=== PATIENT | male | born 1975 | race Caucasian/White ===

== ENCOUNTER 2020-07-20 15:07 | Outpatient (REF) | payer MEDICAID, SELFPAY ==
[2020-07-22 15:03] LABS: Chlamydia Result Negative (Negative); GC Result Negative (Negative)
== END 2020-07-20 15:27 ==
LOC: NCHCN 15:07
PROVIDERS: PCP Family Medicine; Visit Provider Family Medicine
DX: R30.0 Dysuria (principal)
CPT/HCPCS: 87491; 87591

== ENCOUNTER 2021-03-23 02:58 | Emergency (ER) | payer MEDICAID, SELFPAY ==
[2021-03-23] VITALS (45 sets, daily range): BP systolic 149–171; BP diastolic 77–101; PULSE 62–97; RESP 13–24; TEMP 36.2; O2SAT 93–100
--- NOTE | 2021-03-23 03:00 | DI.CT_ITS ---
Exam(s) CT THORAX ABD/PEL CTA EXAM: CT THORAX ABD/PEL CTA CLINICAL HISTORY: severe rlq pain, radiates to chest and shoulder TECHNIQUE: Imaging Protocol: Axial computed tomography images with coronal and sagittal reformatted images were created and reviewed CONTRAST MATERIAL: Intravenous: Omnipaque 350 Contrast volume:100 mL Oral: No COMPARISON: No exams were available for comparison FINDINGS: The examination is limited due to patient motion artifact. CHEST: Tracheobronchial tree: Patent where visualized. Pulmonary parenchyma: No consolidation or dominant measurable mass. Subpleural cysts are seen which m ay reflect paraseptal emphysema. Visualized thyroid gland: Unremarkable. Mediastinum and Lucy: No dominant adenopathy or fluid collection. Small hiatal hernia. Pleura: No effusion or pneumothorax. Heart: The heart is not dilated. No coronary artery calcifications are seen. No pericardial effusion. Aorta: Thoracic aorta non-dilated. No evidence of dissection. Lymph nodes: Within normal limits. Soft tissues: Unremarkable. Bones:Within normal limits for the patient's age. Pulmonary arteries: The central pulmonary arteries show no evidence of a pulmonary embolus. ABDOMEN: Liver: Normal density. No measurable mass. Portal, Superior Mesenteric, and Splenic Veins: Unremarkable. Gallbladder and Biliary Tract: No radiodense calculus or dilation. Pancreas: Normal density, no abnormal calcifications or inflammatory process. Spleen: Normal. Adrenals: No masses seen. Kidneys: Normal size, contour and axis. No radiodense stones or obstructive uropathy. No masses seen. Abdominal Aorta: Abdominal portion non-dilated. Minimal atherosclerosis. Bowel: No obstruction or bowel wall thickening. No evidence of appendicitis. Peritoneal Cavity: No ascites, collection or mesenteric inflammatory response. No free air. Lymph Nodes: Within normal limits. Bones: Within normal limits for the patient's age. There is L5 spondylolysis. No significant spondy lolisthesis. Soft Tissues: Small fat containing left inguinal hernia. Small fat containing right inguinal hernia. There does appear to be high riding right testicle. PELVIS: Bladder: Symmetric distention, no gross wall thickening. Reproductive Organs: Unremarkable as visualized. Lymph Nodes: Within normal limits. Bones: Within normal limits. IMPRESSION: 1. No acute abdominal or pelvic process. 2. No acute pulmonary process. RADIATION DOSE DELIVERED: 1,414.39mGy.cm Total DLP DATA REPOSITORY: All CT scans at this facility are submitted to the National Radiology Data Registry (NRDR) Dose Index Registry (DIR) with the [employer] (ACR). RADIATION OPTIMIZATION: All CT scans at this facility use at least one of these dose optimization te chniques: automated exposure control; mA and/or kV adjustment per patient size (includes targeted exa ms where dose is matched to clinical indication); or iterative reconstruction.
--- NOTE | 2021-03-23 03:00 | RT.EKG_ITS ---
APPROVED REPORT Exam: Resting ECG Reason for Exam: chest pain Patient Location: E HR:76 bpm ECG Measurements Heart Rate 76 AXIS WV 135 P 47 QRSd 98 QRS 82 QT 420 T 60 QTc 473 Conclusion Sinus rhythm...normal P axis, V-rate 60- 99 Physician: Rate 76, sinus rhythm, QT 420, QRS normal, no significant ST elevation or depression, no e vidence of STEMI.
--- NOTE | 2021-03-23 03:05 | ED.GENADUL_ITS ---
Discharge Plan Disposition Patient Disposition: HOME Condition: Good Discharge Details Clinical Impression: Abdominal pain, Pain in right testicle, Skin lesion Primary Care Provider: Krishna Lala ED Provider: Valeriy Awan Home Meds and New Rx's Prescriptions: No Action methadone 10 mg/mL Concentrate 110 mg PO DAILY RF: 0 Discharge Instructions Instructions: Abdominal Pain (ED) Additional Instructions: At this time your CT scan of your abdomen shows no significant abnormality. Your laboratory work-up has improved on her reassessment/redraw. At this time I do feel that a notable part of your testicular pain was likely secondary to the high riding component, which has since resolved. Please follow-up closely with the urologist for discussion of potential surgical management in the future. In regards to the lesion on your leg, please keep the area bandaged, apply triple antibiotic ointment daily. Do not pick or scratch at the area. If after 2 weeks of consistent management like this there is no change whatsoever, the area may need to be biopsied. Please follow-up closely with your primary care provider in regards to this. If you notice any worsening of your symptoms, or any new symptoms such as vomiting, diarrhea, fever, chills, shortness of breath, chest pain, numbness, weakness, or fainting , please return immediately to the emergency department for reevaluation. Please follow up with your primary care provider as soon as possible for reassessment and reevaluation. As always, it was a pleasure participating in your medical care today. Referrals: Boogie Chisholm MD [ [facility] STAFF PHYSICIAN] - Krishna Lala [Primary Care Provider] - Medical Decision Making This is a 45-year-old male no significant past medical history except for methadone use who presents today for right lower quadrant abdominal pain. Patient states that for the last day he has had mild achiness in his abdomen, he did use heroin recently and also did use cocaine this evening. Patient states he went to sleep, and woke up with sudden onset severe right lower quadrant abdominal pain which she describes as sharp and stabbing, says it radiates up into his right chest and right shoulder. He admits to vomiting and nausea. He denies any urinary complaints. He admits to generalized pain throughout his abdomen and his genital region as well as his chest. He denies any numbness or tingling or weakness in his extremities. He denies any family history or personal history of aneurysm, dissection, or sudden catastrophic in the family from chest or abdominal problems. He denies previous abdominal surgeries. No other complaints at this time. He denies any other modifying factors currently aside for the pain being worse with palpation and touch of the abdomen. Physical exam demonstrates evidence of notable tenderness in the right lower quadrant, genital exam shows no evidence of testicular torsion clinically. With the patient's notable significant cocaine use, as well as his pain which does radiate to the chest pain concern for concerning abnormalities like dissection, however appendicitis is higher on the differential. Urinary/kidney stone is also on the differential but less likely. We'll get a CT scan/CTA, treat the patient's pain, get an child and family therapist closely and reassess. 6:07 AM There is a notable delay in labs and imaging initially secondary to the challenging nature of the patient venous access. I did place an ultrasound- guided IV eventually for secure IV access. Laboratory work-up returned, patient has a white count of 13, lactate of 2.4, electrolytes are stable, transaminases and alk phos minimally elevated, troponin unremarkable, EKG stable. Lipase normal. Urinalysis negative aside for mild ketones, toxicology UDS demonstrates positive opiates methadone and cocaine. Patient initial assessment demonstrated generalized abdominal tenderness throughout primarily in the right lower quadrant, testicular exam was unremarkable aside for high riding testicle with only minimal tenderness. CT scan results have returned, no evidence of acute process per radiology. I did contact the radiologist and reviewed the images with them, they do feel that the appendix is within normal limits, please see no evidence of edema of the abdomen or intestines. They're unable to assess vascular flow at the testicles. Repeat exam after 3 mg of Dilaudid demonstrates improved pain, however the patient still does demonstrate generalized lower quadrant abdominal tenderness, repeat testicular exam continues to demonstrate high riding testicle, mild tenderness in this area. Symptoms don't clinically appear consistent with torsion. Uncertain as to what the exact etiology of the cause of his pain, white count and elevated lactate are. As the patient's pain is improved, and there is no evidence of acute life-threatening etiology in the abdomen I do feel that further investigation of the scrotum and testicles is reasonable at this time. Currently there is no credit interviewer available but there will be one available in about an hour and a half. We'll continue to monitor the patient here, get an ultrasound of the testicles, monitor closely and reassess. Of note I was contacted by the patient close friend Mallory, the patient did give verbal permission for her to be told the clinical scenario. She would like to be contacted after the ultrasound results are back. Her phone number is [phone]. 7:38 AM Ultrasound was performed, and during the time of 6 AM when I last evaluated the patient scrotum and again palpated his testicles, the right one which was still slightly high riding, until when he went to ultrasound the patient had a notable transition from the testicle being high riding, to having a normal location within the scrotum. After this transition the patient had complete resolution of pain. Ultrasound was performed and did demonstrate a small varicocele and spermatocele, but no evidence of testicular lesion, mass, or evidence of torsion whatsoever. On reassessment the patient has no testicular pain or tenderness an d has no abdominal pain or tenderness whatsoever. He feels much better and feels comfortable going home. In addition to this he did show me a lesion on his right page, which is been present for the last few weeks. Recommendations at this time are for triple antibiotic ointment placement, as well as continued bandaging for the next 1 to 2 weeks. If lesion is unchanged after this course of treatment, will recommend close follow-up with PCP for potential discussion of biopsy. Lesion at this point looks like a well-healing ulcer from a previous abscess which the patient clinically states was there before. Symptoms at this time do not appear consistent with squamous cell carcinoma or basal cell carcinoma clinically. We will also place a referral with urology for follow-up for discussion about potential surgical management for the high riding testicle if it recurs. Repeat exam continues to show no signs of an acute surgical abdomen whatsoever. Discussed red flags which return. I have extensively reviewed the treatment plan and discharge instructions with the patient. I have addressed all patient concerns at this time. The patient was made aware of what symptoms to monitor for that would warrant a return to the emergency department. Discussed the plan with the patient, they demonstrate verbal understanding and agreement with our assessment and plan at this time. The documentation in this chart was dictated using [employer] dictation software. Please excuse any dictation errors. EKG 3: 06 Rate 76, sinus rhythm, QT 420, QRS normal, no significant ST elevation or depression, no evidence of STEMI. FINDINGS: Limitations: Moderate respiratory motion artifact. Pulmonary arteries: Evaluation for emboli in the segmental pulmonary arteries is somewhat limited due to respiratory motion artifact. No pulmonary arterial filling defects identified. Aorta: Unremarkable. No aortic aneurysm. No aortic dissection. Lungs: Mild paraseptal emphysema at the lung apices. Lungs otherwise clear. Pleural spaces: Unremarkable. No pneumothorax. No pleural effusion. Heart: Unremarkable. No cardiomegaly. No pericardial effusion. Lymph nodes: Unremarkable. No enlarged lymph nodes. Bones/joints: Unremarkable. No acute fracture. Soft tissues: Unremarkable. IMPRESSION: No evidence of pulmonary embolism. FINDINGS: Limitations: Moderate motion artifact. Aorta: No aortic aneurysm. No aortic dissection. Celiac trunk and mesenteric arteries: No occlusion or significant stenosis. Renal arteries: No occlusion or significant stenosis. Right iliac arteries: No occlusion or significant stenosis. Left iliac arteries: No occlusion or significant stenosis. Liver: No mass. Gallbladder and bile ducts: Unremarkable. No calcified stones. No ductal dilation. Pancreas: Unremarkable. No mass. No ductal dilation. Spleen: 14.4 cm maximum dimension of the spleen. Adrenal glands: Unremarkable. No mass. Kidneys and ureters: Unremarkable. No solid mass. No hydronephrosis. Stomach and bowel: Unremarkable. No obstruction. No mucosal thickening. Appendix: A normal appendix is seen. Intraperitoneal space: Unremarkable. No free air. No significant fluid collection. Lymph nodes: Unremarkable. No enlarged lymph nodes. Urinary bladder: Unremarkable. No mass. Reproductive: High riding right testicle. Bones/joints: No acute or suspicious osseous abnormalities. Mild disc space height loss at L2/L3. Soft tissues: Unremarkable. IMPRESSION: 1. No acute process identified in the abdomen or pelvis. 2. Splenomegaly. Thank you for allowing us to participate in the care of your patient. Dictated and Authenticated by: Cammy Davila MD 03/23/2021 5:13 AM Eastern Time ([place] & [place]) HPI General Date/Time Provider Initiated Documentation: 03/23/21 03:01 . HPI Narrative: This is a 45-year-old male no significant past medical history except for methadone use who presents today for right lower quadrant abdominal pain. Patient states that for the last day he has had mild achiness in his abdomen, he did use heroin recently and also did use cocaine this evening. Patient states he went to sleep, and woke up with sudden onset severe right lower quadrant abdominal pain which she describes as sharp and stabbing, says it radiates up into his right chest and right shoulder. He admits to vomiting and nausea. He denies any urinary complaints. He admits to generalized pain throughout his abdomen and his genital region as well as his chest. He denies any numbness or tingling or weakness in his extremities. He denies any family history or personal history of aneurysm, dissection, or sudden catastrophic in the family from chest or abdominal problems. He denies previous abdominal surgeries. No other complaints at this time. He denies any other modifying factors currently aside for the pain being worse with palpation and touch of the abdomen. Related Data Home Medications Medication Instructions Recorded Confirmed methadone 110 mg PO DAILY 03/23/21 03/23/21 Allergies Allergy/AdvReac Type Severity Reaction Status Date / Time Penicillins Allergy unknown as Unverified 03/23/21 03:05 child General Stated Complaint: Abd Prob IRA: 2 Review of Systems All systems reviewed & are unremarkable except as noted in HPI and below PFSH Social History Smoking/Tobacco Use Status: Current every day Tobacco Type: cigarettes Smoking risk assessment performed?: Yes Alcohol Intake: never Drug use: Daily Substance use type: crack/cocaine, heroin and IV drugs Do you feel safe at home: Yes Do you feel safe in your relationship?: Yes Exam Narrative Exam Narrative: 1.Const: Well-nourished, Well-developed, appearing stated age 2.Eyes: PERRL, no conjunctival injection, and symmetrical lids. 3.ENT: Atraumatic external nose and ears. Moist MM. Neck: Symmetric, trachea m idline, No thyromegaly. 4.CVS: +S1/S2, No murmurs or gallops. Peripheral pulses 2+ and equal in all extremities. Brisk capillary refill in all extremities. 5.RESP: Unlabored respiratory effort. Clear to auscultation bilaterally. No wheezes rales or rhonchi 6.GI: Notable tenderness in the right lower quadrant, generalized tenderness throughout. Genital exam demonstrates no genital abnormalities, testicles are in normal lie, normal cremasteric reflex bilaterally, one testicle is certainly much more proximal than the other. No significant testicular tenderness. 7.MSK: Normocephalic/Atraumatic, Extremities w/o deformity or ttp No cyanosis or clubbing, Normal movement of all extremities, dorsalis pedis and posterior tibial pulse +2 bilaterally, no vascular abnormalities 8.Skin: Warm, Dry. No rashes or lesions. 9.Neuro: acid tender II-XII grossly intact. Sensation grossly intact, no focal neurologic deficits. 10.Psych: (AAO) x3. Appropriate mood and affect Course Vital Signs Vital signs: Vital Signs Temperature 36.2 C L 03/23/21 03:00 Pulse 72 03/23/21 03:00 Respiratory Rate 24 03/23/21 03:00 Blood Pressure 164/92 H 03/23/21 03:00 Pulse Oximetry 100 03/23/21 03:00 Temperature 36.2 C L 03/23/21 03:00 Pulse 72 03/23/21 03:00 Respiratory Rate 24 03/23/21 03:00 Blood Pressure 164/92 H 03/23/21 03:00 Blood Pressure Position Supine 03/23/21 03:00 Pulse Oximetry 100 03/23/21 03:00 Oxygen Delivery Method Room Air 03/23/21 03:00 Oxygen Flow Rate 0 03/23/21 03:00 Pain Level 10 03/23/21 03:00 Procedures Other Description: Candidate vein examined with linear array probe - confirmed collapsibility, lack of pulsatility, and proper anatomic location. Using aseptic technique, IV catheter inserted with flash of blood noted, flow of venous blood confirmed. Flushes easily and without pain. No hematoma or complications noted. IV secured. Patient tolerated well. Sign Out Sign Out Data: Sign Out Comment: Severe abdominal pain, pending ultrasound of scrotum. Last updated by Valeriy Awan DO at 03/23/21 06:52
--- NOTE | 2021-03-23 03:18 | NUR.NOTE ---
Two unsuccessful attempts at IV access in bilateral AC's. History of IV drug use. Kenna RN to attempt.Nursing Note:
--- NOTE | 2021-03-23 03:22 | NUR.NOTE ---
Two unsuccessful IV attempts in L AC by Henna Pierson Note:
--- NOTE | 2021-03-23 03:25 | NUR.NOTE ---
Unsuccessful IV attempt in left thumb. Patient reports that is his best vein. Plan for Dr. Awan to attempt IV start.Nursing Note:
--- NOTE | 2021-03-23 03:30 | NUR.NOTE ---
Dr. Awan at bedside for ultrasound guided IV placement.Nursing Note:
[2021-03-23] MEDS: Ondansetron 4 MG/2 ML VIAL IVP ×2 (03:41→05:00)
[2021-03-23] MEDS: Normal Saline 1,000 ML 1000 ML IV (03:50)
[2021-03-23] MEDS: HYDROmorphone 2 MG/ML VIAL 1 MG IVP ×3 (03:52→05:00)
[2021-03-23 03:59] LABS: Abs Immature Grans 0.05 10^3/uL (0.0-0.06); Absolute Eosinophil Count 0.07 10^3/uL (0.0-0.7); Absolute Monocyte Count 0.88 10^3/uL (0.1-0.8); Basophils % 0.8; Eosinophils % 0.5; HCT 46.1 % (40.0-50.0); HGB 15.4 g/dL (13.5-17.5); Immature Grans % 0.4; Lymphocytes % 24.4; MCH 27.6 pg (27.0-33.0); MCHC 33.4 % (32.0-36.0); MCV 82.8 fL (80-95); MPV 9.8 fL (8.0-11.0); Monocytes % 6.7; Neutrophils % 67.2; Nucleated RBC 0 %; Platelet Count 333 10^3/uL (130-400); RBC 5.57 10^6/uL (4.36-5.78); RDW 12.6 % (11.8-14.1)
--- NOTE | 2021-03-23 03:59 | NUR.NOTE ---
To DI per cart with sound technician.Nursing Note:
[2021-03-23 04:01] LABS: Lactate 2.4 mmol/L (0.9-1.7)
[2021-03-23 04:06] LABS: Source Nasal/Nares
[2021-03-23 04:18] LABS: ALT 71 U/L (16-63); AST 38 U/L (15-37); Albumin 4.4 g/dL (3.4-5.0); Alkaline Phosphatase 150 U/L (46-116); Anion Gap 10.1 mmol/L (3-11); BUN 17 mg/dL (7-18); Bilirubin, Total 0.6 mg/dL (0.2-1.0); CO2 28.9 mmol/L (21.0-32.0); CREATININE 1.2 mg/dL (0.70-1.30); Calcium 10.7 mg/dL (8.5-10.1); Chloride 99 mmol/L (98-107); Glucose 119 mg/dL (74-106); Potassium 3.4 mmol/L (3.5-5.1); Sodium 138 mmol/L (136-145); Total Protein 9.7 g/dL (6.4-8.2)
[2021-03-23] MEDS: Omnipaque 350 MG/ML 100 ML BTL IJ (04:18)
[2021-03-23 04:20] LABS: Lipase 66 U/L (73-393)
[2021-03-23 04:21] LABS: Troponin I < 0.05 ng/mL (<0.06)
[2021-03-23 05:00] LABS: Bilirubin Negative (Negative); Blood Negative (Negative); Clarity Sl Cloudy (Clear); Glucose Negative (Negative); Ketones 80 mg/dL (Negative); Leukocyte Esterase Negative (Negative); Nitrite Negative (Negative); Specific Gravity 1.015 (1.005-1.025); Urobilinogen 0.2 EU/dL (Up TO 0.2); pH >= 9.0 (5-8)
--- NOTE | 2021-03-23 05:06 | NUR.NOTE ---
Patient requests his dose of methadone, reports it has been a few days, unsure last appointment, reports he overslept.Nursing Note:
[2021-03-23 05:12] LABS: *AMPHETAMINES SCREEN URINE Negative (Negative); *BARBITURATES SCREEN URINE Negative (Negative); *BENZODIAZEPINES SCREEN URINE Negative (Negative); Cannabinoids THC Negative (Negative); Cocaine Screen,Urine Positive (Negative); METHADONE URINE SCREEN Positive (Negative); OPIATES URINE SCREEN Positive (Negative)
--- NOTE | 2021-03-23 05:13 | DI.VRAD_ITS ---
Addendum created by Cammy Davila MD on 03/23/2021 5:28:37 AM EDT: Findings were discussed with SEDA PAGAN at 03/23/2021 5:28 AM EDT. Initial report created on 03/23/2021 5:13:36 AM EDT: PROCEDURE INFORMATION: Exam: CTA Chest With Contrast Exam date and time: 03/23/2021 3:04 AM Age: 45 years old Clinical indication: Other: Severe rlq pain radiaes to chest and shoulder; Abdominal pain; Localized; Right lower quadrant (rlq) TECHNIQUE: Imaging protocol: Computed tomographic angiography of the chest with contrast. 3D rendering (Not supervised by radiologist): MIP and/or 3D reconstructed images were created by the technologist. Radiation optimization: All CT scans at this facility use at least one of these dose optimization techniques: automated exposure control; mA and/or kV adjustment per patient size (includes targeted exams where dose is matched to clinical indication); or iterative reconstruction. Contrast material: OMNI 350; Contrast volume: 100 ml; Contrast route: INTRAVENOUS (IV); COMPARISON: No relevant prior studies available. FINDINGS: Limitations: Moderate respiratory motion artifact. Pulmonary arteries: Evaluation for emboli in the segmental pulmonary arteries is somewhat limited due to respiratory motion artifact. No pulmonary arterial filling defects identified. Aorta: Unremarkable. No aortic aneurysm. No aortic dissection. Lungs: Mild paraseptal emphysema at the lung apices. Lungs otherwise clear. Pleural spaces: Unremarkable. No pneumothorax. No pleural effusion. Heart: Unremarkable. No cardiomegaly. No pericardial effusion. Lymph nodes: Unremarkable. No enlarged lymph nodes. Bones/joints: Unremarkable. No acute fracture. Soft tissues: Unremarkable. IMPRESSION: No evidence of pulmonary embolism. PROCEDURE INFORMATION: Exam: CTA Abdomen and Pelvis With Contrast Exam date and time: 03/23/2021 3:04 AM Age: 45 years old Clinical indication: Other: Severe rlq pain radiaes to chest and shoulder; Abdominal pain; Localized; Right lower quadrant (rlq) TECHNIQUE: Imaging protocol: Computed tomographic angiography of the abdomen and pelvis with contrast material. 3D rendering (Not supervised by radiologist): MIP and/or 3D reconstructed images were created by the technologist. Contrast material: OMNI 350; Contrast volume: 100 ml; Contrast route: INTRAVENOUS (IV); COMPARISON: No relevant prior studies available. FINDINGS: Limitations: Moderate motion artifact. Aorta: No aortic aneurysm. No aortic dissection. Celiac trunk and mesenteric arteries: No occlusion or significant stenosis. Renal arteries: No occlusion or significant stenosis. Right iliac arteries: No occlusion or significant stenosis. Left iliac arteries: No occlusion or significant stenosis. Liver: No mass. Gallbladder and bile ducts: Unremarkable. No calcified stones. No ductal dilation. Pancreas: Unremarkable. No mass. No ductal dilation. Spleen: 14.4 cm maximum dimension of the spleen. Adrenal glands: Unremarkable. No mass. Kidneys and ureters: Unremarkable. No solid mass. No hydronephrosis. Stomach and bowel: Unremarkable. No obstruction. No mucosal thickening. Appendix: A normal appendix is seen. Intraperitoneal space: Unremarkable. No free air. No significant fluid collection. Lymph nodes: Unremarkable. No enlarged lymph nodes. Urinary bladder: Unremarkable. No mass. Reproductive: High riding right testicle. Bones/joints: No acute or suspicious osseous abnormalities. Mild disc space height loss at L2/L3. Soft tissues: Unremarkable. IMPRESSION: 1. No acute process identified in the abdomen or pelvis. 2. Splenomegaly. Dictated and Authenticated by: Cammy Davila MD. Ordering:PARADISE Crooks MD
[2021-03-23 05:14] LABS: Tricyclic Antidepressants Negative (Negative)
--- NOTE | 2021-03-23 05:30 | DI.US_ITS ---
Exam(s) US SCROTUM EXAM: US SCROTUM CLINICAL HISTORY: eval testicles for torsion. TECHNIQUE: Scrotal ultrasound performed using grayscale, color-flow and spectral Doppler analysis. COMPARISON: No exams were available for comparison FINDINGS: Right testicle: 4.2 x 2.3 x 3.0 cm Echogenicity: Normal. Contour: Smooth. Mass: None seen. Microlithiasis: None. Hydrocele: None. Variocele: None. Hernia: No peristalsing bowel loop identified. Epididymis: Normal. Left testicle: 4.2 x 2.3 x 3.0 cm Echogenicity: Normal. Contour: Smooth. Mass: None seen. Microlithiasis: 3 echogenic foci are seen in the left testicle. These likely reflect small calcifica tions. Hydrocele: None. Variocele: Left varicocele is present. Hernia: No peristalsing bowel loop identified. Epididymis: Normal. DOPPLER: Color: Symmetric and uniform, no hyperemia. Duplex: Bilateral testicular arterial waveforms visualized. IMPRESSION: No evidence of testicular torsion or an inflammatory/infectious process. DATA REPOSITORY:
--- NOTE | 2021-03-23 06:07 | NUR.NOTE ---
Patient resting with eyes closed. Vital signs stable. Side rails up x2. Call light in reach.Nursing Note:
[2021-03-23 06:56] LABS: Lactate 1.1 mmol/L (0.6-1.4)
--- NOTE | 2021-03-23 07:03 | NUR.NOTE ---
Report to ELEANOR Nguyen for continued careNursing Note:
[2021-03-23 07:21] LABS: Troponin I < 0.05 ng/mL (<0.06)
--- NOTE | 2021-03-23 07:36 | NUR.NOTE ---
Nursing Note: Spoke with Matheus at [facility] and notified them that the patient did not receive his dose from us and that he would be coming to their facility to get it. Porsche Blackburn
--- NOTE | 2021-03-23 07:44 | NUR.NOTE ---
Nursing Note: Referral faxed to [facility] for recurrent high riding testicle with severe pain, within 1 month. Porsche Blackburn
[2021-03-23 12:42] LABS: COVID-19 PCR Negative (Negative)
== END 2021-03-23 07:46 | disposition home or self-care (01) ==
PROVIDERS: Emergency Provider Student in an Organized Health Care Education/Training Program; PCP Family Medicine
DX: R10.31 Right lower quadrant pain (principal); N50.811 Right testicular pain; R11.2 Nausea with vomiting, unspecified; L98.9 Disorder of the skin and subcutaneous tissue, unspecified; Z20.822 Contact with and (suspected) exposure to COVID-19; Z03.818 Encounter for observation for suspected exposure to other biological agents ruled out
CPT/HCPCS: 36415; 71275; 74177; 80053; 80307; 83690; 87635; 93005; 96361; 96374; 96375; 96376; 99285; 76870; 81003; 83605; 84484; 85025; 93010; J2405; J3490

== ENCOUNTER 2021-03-30 15:06 | Outpatient (REF) | payer MEDICAID, SELFPAY ==
[2021-03-30 23:03] LABS: Anion Gap 8.2 mmol/L (3-11); BUN 15 mg/dL (7-18); CO2 28.8 mmol/L (21.0-32.0); CREATININE 1.1 mg/dL (0.70-1.30); Calculated LDL 122 mg/dL (<100); Chloride 101 mmol/L (98-107); Cholesterol 203 mg/dL (<200); Glucose 158 mg/dL (74-106); HDL Cholesterol 32 mg/dL (40-60); Potassium 4.4 mmol/L (3.5-5.1); Sodium 138 mmol/L (136-145); Triglyceride 246 mg/dL (<150)
[2021-03-31 16:17] LABS: Chlamydia Result Negative (Negative); GC Result Negative (Negative)
[2021-04-01 09:31] LABS: Hepatitis B Surface Ag Negative (Negative)
[2021-04-01 10:25] LABS: HIV-1/2 Ag & Ab Screen Negative (Negative)
[2021-04-01 10:44] LABS: Syphilis Serology (RPR) Negative (Negative)
[2021-04-01 15:39] LABS: HCV RNA Detection Quantitative 10600000 IU/mL (Undetected); HCV RNA Qualitative Detected (Undetected)
== END 2021-03-30 15:07 | disposition home or self-care (01) ==
LOC: LBN 15:06
PROVIDERS: PCP Family Medicine; Visit Provider Family Medicine
DX: B19.20 Unspecified viral hepatitis C without hepatic coma (principal); Z00.00 Encounter for general adult medical examination without abnormal findings; E83.52 Hypercalcemia; N50.811 Right testicular pain; Z11.8 Encounter for screening for other infectious and parasitic diseases; Z11.4 Encounter for screening for human immunodeficiency virus [HIV]
CPT/HCPCS: 80048; 80061; 87340; 87389; 87491; 87522; 87591; 86592